=== PATIENT | male | born 1980 | race Caucasian/White ===

== ENCOUNTER 2023-04-02 08:58 | Inpatient (IN) | payer BC ==
[~2023-04-02] VITALS: Ht 172.7 cm; Wt 72.6 kg
[2023-04-02] VITALS (15 sets, daily range): BP systolic 117–146; BP diastolic 72–96
[2023-04-02] MEDS ORDERED: AMOX-CLAV 875-1 EAC5 PO (09:23)
[2023-04-02] MEDS ORDERED: OXYCODONE-ACET1 EAC3 PO (09:23)
[2023-04-02 10:04] LABS: BASOPHILS ABSOLUTE AUTO 0.03 K/mm3 (0.00-0.23); BASOPHILS PERCENT AUTO 0 % (0-2); EOSINOPHILS ABSOLUTE AUTO 0.05 K/mm3 (0.00-0.68); EOSINOPHILS PERCENT AUTO 0 % (0-6); Hematocrit 42.1 % (37.0-53.0); Hemoglobin 14.5 g/dL (13.5-17.5); IMMATURE GRAN ABSOLUTE AUTO 0.09 K/mm3 (0.00-0.10); IMMATURE GRAN PERCENT AUTO 1 % (0-1); LYMPHOCYTES ABSOLUTE AUTO 1.08 K/mm3 (0.84-5.20); LYMPHOCYTES PERCENT AUTO 7 % (21-46); MONOCYTES ABSOLUTE AUTO 0.96 K/mm3 (0.16-1.47); MONOCYTES PERCENT AUTO 7 % (4-13); Mean Corpuscular HGB 31.4 pg (26.0-34.0); Mean Corpuscular HGB Conc 34.4 g/dL (31.5-36.5); Mean Corpuscular Volume 91 fL (80-100); NEUTROPHILS ABSOLUTE AUTO 12.64 K/mm3 (1.96-9.15); NEUTROPHILS PERCENT AUTO 85 % (41-73); Platelet Count 283 K/mm3 (150-400); Red Blood Cell Count 4.62 M/mm3 (4.30-5.90); White Blood Cell Count 14.85 K/mm3 (4.00-11.30)
[2023-04-02 10:24] LABS: Albumin, Blood 3.5 g/dL (3.4-5.0); Albumin/Globulin Ratio 0.7 (0.8-1.8); Bilirubin, Total 1.1 mg/dL (0.1-1.0); Bun/Creatinine Ratio 15.8 (12.0-20.0); Calcium, Blood 9.5 mg/dL (8.5-10.1); Creatinine, Blood 0.76 mg/dL (0.60-1.20); Globulin, Blood 4.7 g/dL (2.2-4.0); Potassium, Blood 4.7 mmol/L (3.5-5.5); Total Protein, Blood 8.2 g/dL (6.4-8.2)
--- NOTE | 2023-04-02 13:29 | NUR ---
Pt. is awake and welcomes my visit. Pt. is pleasant and I facilitated a life review particular to the injury that brought Pt. to the hospital. Pt. displays evidence of being engaged and aware of his condition. Considered matters of maureen and belief. Prayed with Pt. Pt. verbalized gratitude for the spiritual care visit.
--- NOTE | 2023-04-02 14:30 | NUR ---
Into [facility] via [facility]. History, Chart, Medications and Allergies reviewed before start of procedure.Lungs clear T/O to Auscultation. Patient confirms NPO status and agrees with scheduled surgery. Surgical site prepped with 2% Chlorhexidine cloth wipe.
--- NOTE | 2023-04-02 14:45 | NUR ---
ATTEMPTED TO SHAVE AND PREP LEFT KNEE. PT REPORTS DISCOMFORT. THEREFORE, SHAVING ABORTED. CHLORHEXIDINE WIPE X 2.
[2023-04-02] MEDS ORDERED: [UNRECOGNIZED DRUG - OTHER] PO (17:24)
[2023-04-02] MEDS ORDERED: AZAT50 PO (17:25)
--- NOTE | 2023-04-02 17:25 | NUR ---
HOME MEDICATIONS PT REPORTS TAKING 2 HOME MEDICATIONS WHICH HAVE BEEN ADDED TO HIS MED REC. PT REPORTS WANTING TO TAKE HIS OWN MEDS FOR THESE 2 MEDICATIONS THEY ARE FROM HIS HOME COUNTRY AND WORK WELL FOR HIM.
--- NOTE | 2023-04-02 19:41 | NUR ---
SHIFT SUMMARY POD0 L KNEE I&D, A/OX4, VSS, TOLERATING PO, PAIN WELL MANAGED, DISCUSSED [employer] ACT OF 1980 WITH THE PATIENT WHO REPORTS NOT BEING SOMEONE TO WASTE MONEY ON SMOKING AND HAS NO IGNITION SOURCES ON HIM. EDUCATED HIM ON NEW IGNITION SOURCE POLICY AND THAT HE WOULD BE TALKED WITH REGARDING THEM EACH SHIFT. DISUCSSED HOME MEDICATIONS AND HIS DESIRE TO TAKE HIS OWN 2 HOME MEDICATIONS FOR HIS UC HE HAS BEEN ON THEM FOR A WHILE AND THEY ARE FROM A DIFFERENT [employer] WHERE HE CURRENTLY RESIDES FOR THE LAST 15 YEARS. HE ALSO REPORTS CONCERN OF TAKING OUR VERSIONS AND HAVING THEM NOT BE EFFECTIVE. NO ACUTE EVENTS THIS SHIFT, CALL LIGHT IN REACH, REPORT GIVEN TO YANI RN.
--- NOTE | 2023-04-03 05:24 | NUR ---
EOS NOTE: PATIENT A/OX4, PLEASANT AND COOPERATIVE. UP X1 ASSIST WITH FWW/GB DUE TO TTWB STATUS OF RLE. BRACE COVERING SURGICAL DRESSING, UNABLE TO VISUALIZE. PATIENT PAIN MOSTLY CONTROLLED THROUGH THE NIGHT, REQUIRED MORPHINE A FEW TIMES BREAK THROUGH. PATIENT HOPEFUL TO DISCHARGE HOME TODAY.
[2023-04-03 05:58] VITALS: BP 138/88
[2023-04-03 07:57] VITALS: BP 129/81
--- NOTE | 2023-04-03 08:23 | NUR ---
IGNITION SOURCES PT REPORTS NO IGNITION SOURCES BROUGHT IN BY FAMILY OVER NIGHT. CONFIRMED NON SMOKING STATUS AND PATIENTS DESIRE TO NOT START SMOKING OVER NIGHT. PT REPORTS BEING TALKED TO THREE TIMES ON THIS SUBJECT T/O THE NIGHT WELL.
--- NOTE | 2023-04-03 09:41 | NUR ---
Pt. is awake in bed and welcomed my visit. Pt. is a little unsettled by a rough night overnight and lingering pain in his knee. Listened with empathy and a calming presence as I sought to normalize the Pt. experience. Facilitated a deeper life review and consdiered matters of maureen and belief. Pt. verbalized stories of his [place]. Pt. diaplyed evidence of being aware and engaged, though clearly is still experiencing pain. Prayed with Pt. Pt. verbalized gratitude for the spiritual care visit.
[2023-04-03 15:05] VITALS: BP 142/75
[2023-04-03 19:25] VITALS: BP 129/96
--- NOTE | 2023-04-03 19:48 | NUR ---
SHIFT SUMMARY POD1 L KNEE I&D, A/OX4, VSS, TOLERATING PO, AMBULATES WITH FWW WHILE BEING TOE TOUCH WEIGHT BEARING, PAIN WELL MANAGED PER EMAR. CHICKEN DANCE PERFORMED TO CELEBRATE NO IGNITION SOURCES. NO ACUTE EVENTS THIS SHIFT, CALL LIGHT IN REACH, REPORT GIVEN TO YANI CHU.
--- NOTE | 2023-04-03 21:31 | NUR ---
HOME MEDICATION PT TOOK TWO HOME MEDS TONIGHT FOR HIS ULCERATIVE COLITIS. PREVIOUS NURSE REPORTS WE DO NOT CARRY THE FORMULA THAT THE PT TAKES. DR AWARE OF THIS. MEDICATION IN MED REC.
[2023-04-04 02:48] VITALS: BP 131/80
--- NOTE | 2023-04-04 04:41 | NUR ---
SHIFT SUMMARY POD2 L KNEE I&D. IMMOBILIZER AND DRESSING REMAIN IN PLACE. SENSATION AND CIRCULATION REMAINS INTACT IN LLE. VSS. PT REPORTS THROBBING PAIN T/O THE NIGHT, MEDICATED WITH PRN'S WITH GOOD RESULTS. PT ABLE TO MAINTAIN TTWB STATUS WHEN AMBULATING W/ FWW. PT AMBULATING TO BATHROOM, VOIDING AND PASSING STOOL PER BASELINE. NO ACUTE EVENTS T/O THE NIGHT. PLAN TO HAVE KNEE ASSESSED TODAY BY SURGEON AND POSSIBLY HAVE DRAIN REMOVED. THE PATIENT IS CURRENTLY RESTING, IN NO DISTRES, CALL LIGHT IN REACH NO IGNITION SOURCE NOTED
[2023-04-04 07:16] VITALS: BP 138/84
[2023-04-04 08:52] LABS: Hematocrit 35.9 % (37.0-53.0); Hemoglobin 12.6 g/dL (13.5-17.5); Mean Corpuscular HGB 31.5 pg (26.0-34.0); Mean Corpuscular HGB Conc 35.1 g/dL (31.5-36.5); Mean Corpuscular Volume 90 fL (80-100); Mean Platelet Volume 9.3 fL (9.1-12.4); Platelet Count 256 K/mm3 (150-400); RDW Coefficient Variation 11.9 % (11.7-14.2); RDW Standard Deviation 38.9 fL (35.1-46.3)
[2023-04-04 09:10] LABS: Bun/Creatinine Ratio 12.6 (12.0-20.0); Calcium, Blood 8.8 mg/dL (8.5-10.1); Creatinine, Blood 0.8 mg/dL (0.60-1.20); Potassium, Blood 4.1 mmol/L (3.5-5.5)
--- NOTE | 2023-04-04 10:02 | NUR ---
FIRE SAFETY REVIEWED FIRE SAFETY. PT VERBALIZED UNERSTANDING AND DENIED POSSESSION OF LIGHTERS/MATCHES, ETC.
--- NOTE | 2023-04-04 11:16 | NUR ---
DR MILLER IN TO SEE PT. CHANGED DRESSING. PT TOLERATED WELL. KNEE IMMOBILIZER IN PLACE. NEW ORDERS FOR WBAT W/IMMOBLIZIER IN PLACE TO LLE.
--- NOTE | 2023-04-04 12:25 | NUR ---
Pt.is awake in bed and welcomes my viwsit. Spouse is present for the first part of the visit. 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 Engaged in a current life review. Spouse left. Pt. is unsettled about his medicine affecting his dreams. Pt. verbalized that his dreams overnight were disturbing, Listened with empathy and interest. Prayed for the Pt. Pt. verbalized gratitude for the spiritual care visit. Will remain avialable to the Pt. and his family.
[2023-04-04 14:41] VITALS: BP 126/81
--- NOTE | 2023-04-04 17:08 | NUR ---
SUMMARY NO ACUTE CHANGES T/O SHIFT. PT INDEPENDENT IN ROOM. DR MILLER IN TODAY AND CHANGED PT'S DRESSING. GAVE ORDERS THAT PT MAY WBAT W/IMMOBILIZER IN PLACE. CALL LIGHT IN REACH.
[2023-04-04 19:31] VITALS: BP 125/80
[2023-04-05 02:46] VITALS: BP 132/84
--- NOTE | 2023-04-05 04:39 | NUR ---
SHIFT SUMMARY PT HAS RESTED T/O THE NIGHT. S/P I&D OF LEFT KNEE WITH IMMOBILIZER IN PLACE T/O THE NIGHT. PT HAS BEEN UP AND AMBULATING USING THE FWW. REDNESS AND IRRIATION AROUND IV SITE IN LEFT ARM, AND WHERE PREVIOUS IV WAS IN THAT SAME ARM. NEW IV ESTABLISHED IN THE LEFT ARM,M WITH NO ACUTE CHANGES SINCE PLACEMENT. VITALS ARE STABLE. CALL LIGHT WITHIN REACH.
[2023-04-05 07:27] VITALS: BP 129/85
--- NOTE | 2023-04-05 08:08 | NUR ---
FIRE SAFETY REVIEWED FIRE SAFETY EDUCATION WITH PT. CONTINUES TO DENY ANY POSSESSION OF CIGARETTES/LIGHTERS/MATCHES, ETC. VERBALIZES UNDERSTANDING OF [facility] POLICIES.
--- NOTE | 2023-04-05 12:37 | NUR ---
Pt. is awake and welcomes my visits. The Pt. is pleasant, but verbalized that he had an eventful evening. [place] other things the Pt. had been suffering from bad dreams he presumed were caused from his medication. After considering matters of prayer and belief, the Pt. reported that he had a good night of sleep. Facilitated more life review until PT arrived. Pt. displayed evidence of being grateful for the care he has received, and verbalized gratitude for tghe spiritual care visit.
[2023-04-05 15:28] VITALS: BP 132/84
--- NOTE | 2023-04-05 17:53 | NUR ---
SUMMARY NO ACUTE CHANGES T/O SHIFT. DR MILLER IN LATE THIS AFTERNOON, PULLED GIO DRAIN AND PLACED NEW DRESSING. PT INDEPENDENT IN ROOM. MEDICATED T/O DAY FOR PAIN PER ORDERS. CALL LIGHT IN REACH.
[2023-04-05 19:45] VITALS: BP 127/88
--- NOTE | 2023-04-06 00:21 | NUR ---
REPORT GIVEN TO SARAY TO ASSUME CARE OF PT AT THIS TIME. PT RESTING IN BED AND DENIES NEEDS. FIRE RISK ASSESSED THIS SHIFT. PT EDUCATED ON FIRE RISK AND IGNITION SOURCES. PT DENIES HAVING IGNITION SOURCES.
--- NOTE | 2023-04-06 00:31 | NUR ---
ASSUMED CARE ASSUMED CARE OF THIS PATIENT. PATIENT IS SLEEPING AT THIS TIME, BED IN LOW, CALL LIGHT IN REACH
--- NOTE | 2023-04-06 04:31 | NUR ---
SHIFT SUMMARY POD4 LEFT KNEE I&D. SENSATION AND CIRCULATION REMAIN INTACT IN LLE. IMMOBILIZER REMAINS IN PLACE. PT AMBULATING INDEPENDENTLY. TOLLERATING PO INTAKE W/O N/V, VOIDING W/O DIFFICUTLTY. MEDICATED FOR PAIN WITH PRNS. NO ACUTE EVENTS NOTED T/O THE NIGHT. NO IGNITION SOURCE NOTED
[2023-04-06 05:27] VITALS: BP 121/79
[2023-04-06 07:24] VITALS: BP 136/81
[2023-04-06] MEDS ORDERED: DOXY100 PO (12:09)
[2023-04-06] MEDS ORDERED: OXYC5 PO (12:09)
--- NOTE | 2023-04-06 13:35 | NUR ---
DISCHARGE NOTE: PATIENT AND PATIENTS WERE EDUCATED ON DISCHARGE INSTRUCTIONS. BOTH VERBALIZED UNDERSTANDING AND HAD NO FURTHER QUESTIONS AT THIS TIME. IV WAS TAKEN OUT AND WNL. HARD PERSCRIPTION WAS PLACED IN DISCHARGE INSTRUCTIONS FOLDER. HIS ABX PERSCRIPTION WAS FAXED TO [facility] PER PATIENT REQUEST. PATIENT WILL BE FOLLOWING UP WITH DR. MILLER ON 04/09 @ 0900. PATIENTS LEFT KNEE HAS A MEDIPORE DRESSING WITH DANYELLE WRAP THAT IS C/D/I THAT THIS NURSE AND DR. MILLER CHANGED AT BEDSIDE. PATIENT DENIES NUMBNESS OR TINGLING TO ALL EXTREMITIES. HE IS ABLE TO MOVE FINGERS AND TOES WHEN ASKED. PAIN IS MANAGED WITH ORAL PAIN MEDICATIONS. PATIENT IS A SBA WITH CRUTCHES. PATIENT IS DRESSED AND HAS PERSONAL ITEMS IN THE ROOM GATHERED. HE IS TOLERATING PO INTAKE AND IS VOIDING. PATIENT IS BEING WHEELCHAIRED OUT TO HIS WIFES CAR TO BE TAKEN TO HIS PARENTS HOUSE.
== END 2023-04-06 13:45 | disposition home or self-care (01) | DRG 501 ==
LOC: ER 08:58 → SURS 12:50
PROVIDERS: Orthopaedic Surgery; Physician Assistant; ADMIT Internal Medicine
PROC: 0JDP0ZZ Extraction of Left Lower Leg Subcutaneous Tissue and Fascia, Open Approach (ICD-10-PCS; principal; 2023-04-02 15:00)
DX: M70.42 Prepatellar bursitis, left knee (principal); K51.90 Ulcerative colitis, unspecified, without complications; L03.116 Cellulitis of left lower limb; S82.002B Unspecified fracture of left patella, initial encounter for open fracture type I or II; W16.92XA Jumping or diving into unspecified water causing other injury, initial encounter; Z98.890 Other specified postprocedural states; Z79.2 Long term (current) use of antibiotics; Z79.891 Long term (current) use of opiate analgesic; Z88.8 Allergy status to other drugs, medicaments and biological substances
CPT/HCPCS: 36415; 73701; 80048; 80053; 85025; 85027; 87070; 87075; 87077; 87186; 87205; 94760; 96365-59; 96366; 96375-59; 97110; 97116; 97161; 99284-25; A9270; J1885; J2185; J2250; J2270; J2543; J2704; J3010; J3370; J7030; J7050; J7120; Q9967